=== PATIENT | female | born 1975 | race Caucasian/White ===

== ENCOUNTER 2021-08-07 20:16 | Emergency (ER) | payer OTHER ==
[~2021-08-07] VITALS: Ht 139.7 cm; Wt 91.6 kg
[2021-08-07 21:16] VITALS: BP_SYST 98
--- NOTE | 2021-08-08 | NUR ---
DR WALLS IN TRIAGE ROOM FOR EXAM
[2021-08-08 00:27] LABS: BASOPHILS # (AUTO) 0.1 K/uL (0.0-0.2); BASOPHILS % (AUTO) 0.6 % (0.0-2.0); EOSINOPHILS # (AUTO) 0.3 K/uL (0.0-0.4); EOSINOPHILS % (AUTO) 3.5 % (0.0-4.0); HEMATOCRIT 40.4 % (36-48); HEMOGLOBIN 13.1 g/dL (12.0-16.0); LYMPHOCYTES # (AUTO) 3.6 K/uL (1.0-5.5); MEAN CORPUSCULAR HEMOGLOBIN 27 pg (27-31); MEAN CORPUSCULAR HGB CONC 33 % (32-36); MEAN CORPUSCULAR VOLUME 83 fL (79.0-98.0); MONOCYTES # (AUTO) 0.6 K/uL (0.0-1.0); MONOCYTES % (AUTO) 6.8 % (1.7-9.3); NEUTROPHILS # (AUTO) 3.9 K/uL (1.8-7.7); NEUTROPHILS % (AUTO) 46.1 % (40.0-70.0); PLATELET COUNT (AUTO) 273 K/uL (130-430); RED CELL DISTRIBUTION WIDTH 13.8 % (9.0-15.0); WHITE BLOOD COUNT (AUTO) 8.5 K/uL (4.8-10.8)
[2021-08-08 00:48] LABS: CALCIUM 8.8 mg/dL (8.4-11.0); CREATININE 0.82 mg/dL (0.55-1.30); POTASSIUM 3.9 mmol/L (3.5-5.1)
[2021-08-08 00:54] LABS: ALBUMIN 3.4 g/dL (3.4-4.8); TOTAL BILIRUBIN 0.3 mg/dL (0.0-1.0)
[2021-08-08] MEDS ORDERED: MAGNESIUM CITRATE 300 ML ORAL SOLUTION PO ONE (01:30)
--- NOTE | 2021-08-08 01:50 | NUR ---
NORBERTO COLLCTED AND DIPSTICK DONE
[2021-08-08] MEDS ORDERED: PANTOPRAZOLE SODIUM 40 MG TAB PO ONE (02:30)
[2021-08-08] MEDS ORDERED: ACETAMINOPHEN 500 MG TABLET PO ONE (02:30)
--- NOTE | 2021-08-08 02:56 | NUR ---
Pt discharged home with family. Post discharge instructions and follow up care explained to pt. Pt verbalized understanding. All belongings with pt.
== END 2021-08-08 02:46 | disposition home or self-care (01) ==
LOC: SED 20:16
DX: R10.31 Right lower quadrant pain (principal)
CPT/HCPCS: 36415; 74018; 80053; 81002; 85025; 99284

== ENCOUNTER 2022-08-29 20:28 | Emergency (ER) | payer OTHER ==
[~2022-08-29] VITALS: Ht 139.7 cm; Wt 90.7 kg
[2022-08-29 21:03] VITALS: BP_SYST 123
[2022-08-29] MEDS ORDERED: KETOROLAC TROMETHAMINE 60 MG/2 ML VIAL IM ONE (23:00)
[2022-08-29] MEDS ORDERED: HYDR-3917 PO (23:51)
[2022-08-30 00:07] VITALS: BP_SYST 123
== END 2022-08-30 00:07 | disposition home or self-care (01) ==
LOC: SED 20:28
DX: M25.511 Pain in right shoulder (principal); Z79.899 Other long term (current) drug therapy
CPT/HCPCS: 99283; 96372; J1885

== ENCOUNTER 2023-12-11 18:42 | Emergency (ER) | payer OTHER ==
[~2023-12-11] VITALS: Ht 139.7 cm; Wt 97.1 kg
[~2023-12-11 18:42] MED LIST: HYDR-3917 PO; TRAM50TA2 PO
[2023-12-11 19:20] VITALS: BP_SYST 127; PULSE 81; RESP 20; TEMP 97.7; O2SAT 97
[2023-12-11 20:47] LABS: BASOPHILS # (AUTO) 0.1 K/uL (0.0-0.2); BASOPHILS % (AUTO) 0.7 % (0.0-2.0); EOSINOPHILS # (AUTO) 0.3 K/uL (0.0-0.4); EOSINOPHILS % (AUTO) 3.6 % (0.0-4.0); HEMATOCRIT 33.2 % (36-48); HEMOGLOBIN 10.9 g/dL (12.0-16.0); LYMPHOCYTES # (AUTO) 3.2 K/uL (1.0-5.5); LYMPHOCYTES % (AUTO) 37.7 % (20.5-51.5); MEAN CORPUSCULAR HEMOGLOBIN 25 pg (27-31); MEAN CORPUSCULAR HGB CONC 33 % (32-36); MEAN CORPUSCULAR VOLUME 76 fL (79.0-98.0); MONOCYTES # (AUTO) 0.8 K/uL (0.0-1.0); MONOCYTES % (AUTO) 9.5 % (1.7-9.3); NEUTROPHILS # (AUTO) 4.1 K/uL (1.8-7.7); NEUTROPHILS % (AUTO) 48.5 % (40.0-70.0); PLATELET COUNT (AUTO) 316 K/uL (130-430); RED BLOOD CELL COUNT(AUTO) 4.35 MIL/uL (4.2-6.2); RED CELL DISTRIBUTION WIDTH 16.1 % (9.0-15.0); WHITE BLOOD COUNT (AUTO) 8.4 K/uL (4.8-10.8)
[2023-12-11 21:07] LABS: ALBUMIN 2.9 g/dL (3.4-4.8); CALCIUM 8.7 mg/dL (8.4-11.0); CREATININE 0.77 mg/dL (0.55-1.30); POTASSIUM 4.2 mmol/L (3.5-5.1); TOTAL BILIRUBIN 0.2 mg/dL (0.0-1.0); TOTAL PROTEIN, SERUM 6.8 g/dL (6.4-8.3)
[2023-12-11 22:57] VITALS: BP_SYST 105; PULSE 80; RESP 20; TEMP 98; O2SAT 95
== END 2023-12-11 22:57 | disposition home or self-care (01) ==
LOC: SED 18:42
DX: R22.42 Localized swelling, mass and lump, left lower limb (principal); M79.672 Pain in left foot; Z79.899 Other long term (current) drug therapy; Z79.2 Long term (current) use of antibiotics
CPT/HCPCS: 36415; 80053; 81025; 85025; 93971; 99284